=== PATIENT | male | born 1980 | race Caucasian/White ===

== ENCOUNTER 2019-06-20 18:29 | Observation (INO) | payer OTHER, SELFPAY ==
[2019-06-20] VITALS (7 sets, daily range): BP systolic 106–146; BP diastolic 66–97; PULSE 85–140; RESP 18–20; TEMP 36.9–37.1; O2SAT 97–100; BMI 23.6
--- NOTE | ~2019-06-20 | XR_ITS ---
EXAMINATION: XR chest 2V EXAM DATE: 06/20/2019 18:50 INDICATION: Palpitations. TECHNIQUE: Frontal and lateral projections of the chest obtained and reviewed. Comparison is made to prior examination from 10/30/2017. FINDINGS: The lungs are clear. There are no pleural effusions. The cardiomediastinal silhouette i s within normal limits. There is no pneumothorax suspected. The bones and soft tissues are unremark able. IMPRESSION: No acute cardiopulmonary findings. Reviewed, dictated and finalized at location A.
--- NOTE | ~2019-06-20 | CT_ITS ---
EXAMINATION: CTA chest PE protocol EXAM DATE: 06/20/2019 20:09 INDICATION: Right-sided chest pain. Tachycardia. TECHNIQUE: Spiral CTA of the chest (pulmonary arteries) was performed with 100 cc Omnipaque 350 intr avenous contrast injection. Images were acquired during the pulmonary arterial phase. Coronal maxi mum intensity projection 3D-reconstructions were created by the technologist on dedicated workstation . Axial, coronal and sagittal reformatted images were reviewed. The dose-length product (DLP) for t his examination was 251.29 mGy-cm. The exposure was tailored according to patient size (auto mA exp osure control), and iterative reconstruction (ASIR) was used as additional dose reduction technique. There is no prior study for comparison. FINDINGS: Pulmonary arteries are well opacified and without intraluminal filling defects. No thora cic aortic dissection. The lungs are clear. There are no pleural or pericardial effusions. Trach eobronchial tree is patent. There is no mediastinal, hilar or axillary lymphadenopathy. There is no pneumothorax. Heart normal in size. No evidence of coronary arterial calcification. Upper abd omen is unremarkable. There is thoracic spondylosis without osteoblastic or osteolytic lesions iden tified. IMPRESSION: Normal CT pulmonary exam. Reviewed, dictated and finalized at location A. IMPRESSION: Normal CT pulmonary exam.
--- NOTE | 2019-06-20 18:49 | ED.ARRPALP ---
HPI - Arrhythmia/Palpitations General Chief Complaint: Arrhythmia/Palpitations Stated Complaint: heart racing Time Seen by Provider: 06/20/19 18:44 Source: patient Mode of arrival: ambulatory Limitations: no limitations History of Present Illness HPI narrative: A 38 y/o male presents to the ED with c/o heart racing. Pt states that tonight he was sitting on the couch when suddenly his heart started racing. He notes that he checked his FitBit and his heart rate was 129. Pt reports slight nausea, burning midsternal CP, chills, pale skin, flashing vision, and palpitations, but denies diaphoresis, cough, fever, and SOB. He had 1.5 beers tonight. Pt adds that he has had similar episodes previously, and had a halter monitor which did not revel any cardiac abnormalities. He denies any recent car or air travel. Pt smokes an occasional cigar. complaint: heart racing Onset (ago): hour(s) (Tonight) Duration: constant Severity: similar to previous episodes Context: occurred during rest Associated symptoms: chest pain (Midsternal), nausea (Slight) and other (Chills, pale skin, flashing vision, palpitations) Related Data Home Medications Medication Instructions Recorded Confirmed No Home Medications 06/20/19 06/20/19 Allergies Allergy/AdvReac Type Severity Reaction Status Date / Time No Known Allergies Allergy Verified 06/20/19 18:38 Review of Systems Review of Systems: Narrative: CONSTITUTIONAL: Denies fever or sweats. Reports chill. EYES: Denies redness or discharge. Reports flashing vision. ENT: Denies rhinorrhea, congestion, sore throat, or otalgia. CARDIOVASCULAR: Denies edema. Reports midsternal chest pain, palpitations, and heart racing. RESPIRATORY: Denies cough or dyspnea. GASTROINTESTINAL: Denies abdominal pain, vomiting, or diarrhea. Reports slight nausea. GENITOURINARY: Denies dysuria or hematuria. SKIN: Denies rash, diaphoresis, or itching. Reports paleness. MUSCULOSKELETAL: Denies back pain, joint pain, or myalgia. NEUROLOGIC: Denies headache, numbness, or weakness. All systems reviewed & are unremarkable except as noted in HPI and below PMFSH Past Medical History Medical History (Updated 06/20/19 @ 21:07 by Judi Barragan MD) Palpitation Surgical History Surgical History (Updated 06/20/19 @ 19:05 by Adenike Benavides) Surgical history unknown Family History Family History Father Hypertension Social History Social History (Updated 06/20/19 @ 19:08 by Adenike Benavides) Smoking status: Current some day smoker Tobacco type: cigars Gender identity (if verbalized by the patient): Male Exam Narrative: Exam Narrative: GENERAL: Well-appearing, well-nourished, and in no acute distress. HEAD: Normocephalic, atraumatic. EYES: PERRLA and EOMI. ENT: Nares clear, no rhinorrhea or epistaxis. Mucous membranes moist. NECK: Supple. CHEST: Clear to auscultation. No respiratory distress. HEART: Tachycardic and regular rhythm. No murmur heard. Normal peripheral pulses. ABDOMEN: Soft, nontender, nondistended, normal active bowel sounds. EXTREMITIES: Normal range of motion. No edema. SKIN: Warm, dry, no rash. NEURO: No focal deficits. Alert and oriented X3. Course Vital Signs Vital signs: Vital Signs Temperature 36.9 C 06/20/19 18:33 Pulse Rate 140 H 06/20/19 18:33 Respiratory Rate 20 06/20/19 18:33 Blood Pressure 146/89 H 06/20/19 18:33 Pulse Oximetry 100 06/20/19 18:33 Temperature 36.9 C 06/20/19 18:33 Pulse Rate 110 H 06/20/19 21:34 Respiratory Rate 20 06/20/19 21:34 Blood Pressure 124/76 06/20/19 21:34 Pulse Oximetry 97 06/20/19 21:34 MDM - Arrhythmia/Palpitations MDM Narrative Medical decision making narrative: Patient presented for evaluation of chest pain, palpitations. At the time of initial assessment, ABCs are intact, vital signs notable for tachycardia rate in the 140s, that does appear to be sinus rhythm. P
--- NOTE | 2019-06-20 18:59 | ECG_ITS ---
Measurements Intervals [place] Rate: 131 P: 67 OR: 161 QRS: 97 QRSD: 109 T: 59 QT: 317 QTc: 469 Interpretive Statements SINUS TACHYCARDIA RIGHT AXIS DEVIATION INCOMPLETE RIGHT BUNDLE BRANCH BLOCK BORDERLINE ST ABNORMALITY- ANTEROLAT/INF LEADS ABNORMAL ECG Electronically Signed On 06-20-2019 20:44:25 CDT by Jorge Nelson D.O.
[2019-06-20 19:09] LABS: Basophils Absolute Auto 0.1 K/mm3 (0.0-0.1); Basophils Percent Auto 0.9 % (0.2-1.2); Eosinophils Absolute Auto 0.4 K/mm3 (0-0.3); Eosinophils Percent Auto 3.8 % (0-4.4); Hematocrit 43.6 % (42.0-52.0); Hemoglobin 15.1 g/dL (14.0-18.0); Immature Granulocyte Absolute 0.04 K/mm3 (0.00-0.031); Immature Granulocyte Percent A 0.4 % (0-0.5); Lymphocytes Absolute Auto 3.99 K/mm3 (0.9-3.2); Lymphocytes Percent Auto 37.5 % (18.3-44.2); Mean Corpuscular HGB Conc 34.6 g/dl (32-36); Mean Corpuscular Hemoglobin 33.4 pg (26-34); Mean Corpuscular Volume 96.5 fl (80-100); Mean Platelet Volume 10.3 fl (7.4-10.4); Monocytes Absolute Auto 1.1 K/mm3 (0.1-0.6); Neutrophils Absolute Auto 5.1 K/mm3 (1.3-6.7); Neutrophils Percent Auto 47.4 % (45.5-73.1); Platelet Count Result 247 k/mm3 (150-375); Red Blood Count 4.52 M/mm3 (4.6-6.20); Red Cell Distribution Width 11.8 % (11.5-14.5); White Blood Count 10.7 K/mm3 (4.5-10.0)
[2019-06-20 19:18] LABS: INR 0.9; Partial Thromboplastin Time 22.7 SECONDS (22.3-36.8); Prothrombin Time 11.7 Seconds (11.1-14.7)
--- NOTE | 2019-06-20 19:19 | ECG_ITS ---
Measurements Intervals [place] Rate: 101 P: 66 GA: 142 QRS: 100 QRSD: 99 T: 61 QT: 322 QTc: 419 Interpretive Statements SINUS TACHYCARDIA POSSIBLE LEFT ATRIAL ENLARGEMENT RIGHT AXIS DEVIATION INCOMPLETE RIGHT BUNDLE BRANCH BLOCK BORDERLINE ECG Electronically Signed On 06-20-2019 20:49:13 CDT by Jorge Nelson D.O.
[2019-06-20] MEDS: ONDANSETRON INJ 4 MG/2 ML VIAL IV PUSH (19:21)
[2019-06-20] MEDS: ASPIRIN 81 MG CHEWABLE TABLET 324 MG PO (19:21)
[2019-06-20] MEDS: SODIUM CHLORIDE 0.9% IV 1,000 ML 999 ML IV CONT (19:21)
[2019-06-20 20:00] LABS: Blood Urea Nitrogen 19 mg/dL (9-20); Carbon Dioxide 23 mmol/L (22-30); Chloride 105 mmol/L (98-107); Estimated CRCL calculation 93 ml/min; Estimated Glomerular Filt Rate > 60; Glucose 155 mg/dL (75-110); Potassium 3.4 mmol/L (3.4-5.0); Sodium 135 mmol/L (137-145)
[2019-06-20 20:11] LABS: Troponin I < 0.012 ng/mL (0.000-0.034)
--- NOTE | 2019-06-20 21:28 | PM.IMHP ---
H&P: [facility] History of Present Illness Chief complaint: Chest pain, fast heart rate Narrative: Date and time of patient contact: 06/21/2019 at 2:00 a.m. Nadir Saeed is a 38 year old male previously healthy who presented to the ER via private vehicle with sudden onset of heart racing and palpitations. The patient was sitting with his girlfriend watching TV when he noticed that his heart rate jumped up on his activity tracker. This was followed by sensation of narrowing of his visual field, cool sensation to his forehead, cool and tingling fingers, and burning sensation in his chest. The symptoms lasted about 45 minutes before resolving. The patient reported that when he went to get into the car he was having severe muscle twitching/in his arms back and chest similar to shivering. They resolved once he came to the ER. He had prior episodes of occasional skipping of heartbeat. He has had episodes as well of his heart racing but it usually lasts for a couple of minutes and is not usually accompanied by he the burning sensation in his chest. He only drinks 1 caffeinated beverage a day. He does not use any illicit substances or energy supplements. He denied feeling particularly anxious before onset of his symptoms today. But he has noticed that some of his episodes of tachycardia been in stressful or frustrating situations. He has not seen a primary care doctor and many years. He had previously had a Holter monitor that did not demonstrated any cardiac arrhythmias. He stated that he waited to come into the ER because he did not want to come in if he was just an anxiety attack. When the patient initially arrived in the ER his calcium was slightly low at 8.0 but repeat CMP demonstrated a normal calcium. He has gained about 15 lb since he turned 38. He has not noticed any skin/hair changes, or changes in bowel habits. Review of Systems Review of Systems: Narrative: Except as documented in the HPI, all other systems were reviewed and are negative. [facility] Past Medical History Medical History (Updated 06/21/19 @ 02:54 by Marilia Zepeda DO) Anxiety Palpitation Surgical History Surgical History (Updated 06/21/19 @ 02:49 by Marilia Zepeda DO) No history of previous surgery Family History Family History (Updated 06/21/19 @ 02:49 by Marilia Zepeda DO) Father Hypertension Mother , of metastatic breast cancer in her early 60s Hypertension Breast cancer Grandparent Heart disease Social History Social History (Updated 06/21/19 @ 03:10 by Marilia Zepeda DO) Social History: Primary care physician: None Smoking status: Current some day smoker Tobacco type: cigars Additional smoking assessment comments: 1 CIGAR WEEKLY Drinks per week: 7 Alcohol use details: He drinks 1-2 beers a day during the week and may drink 3 or 4 beers a day on the weekend. Substance use: current Substance use type: marijuana Other substance usage details: He has used marijuana 4 times during his lifetime. Additional living arrangements comments: . 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 Gender identity (if verbalized by the patient): Male Spiritual care concerns: No Agree to blood products: Yes Meds Home Medications and Allergies Home Medications Medication Instructions Recorded Confirmed Type No Home Medications 06/20/19 06/20/19 History Allergies Allergy/AdvReac Type Severity Reaction Status Date / Time No Known Allergies Allergy Verified 06/20/19 18:38 Vital Signs Vital Signs - 24 hr 06/20/19 18:33 06/20/19 18:37 06/20/19 20:20 Temperature 98.4 F Pulse Rate 140 H 131 H 101 H Respiratory Rate 20 18 Blood Pressure 146/89 H 127/77 Pulse Oximetry 100 97 Exam Narrative: Exam Narrative: PHYSICAL EXAM: WEIGHT 70.5 kilos BMI 23.6 General: No acute distress, well-developed well-nourishe
[2019-06-20 22:10] LABS: Alanine Aminotransferase 10 U/L (4-50); Alkaline Phosphatase 54 U/L (38-126); Aspartate Amino Transferase 23 U/L (17-59); Bilirubin,Total 0.3 mg/dL (0.2-1.3); Blood Urea Nitrogen 18 mg/dL (9-20); Calcium 8.8 mg/dL (8.4-10.2); Carbon Dioxide 27 mmol/L (22-30); Chloride 104 mmol/L (98-107); Estimated CRCL calculation 93 ml/min; Estimated Glomerular Filt Rate > 60; Glucose 103 mg/dL (75-110); Potassium 4.2 mmol/L (3.4-5.0); Sodium 138 mmol/L (137-145)
--- NOTE | 2019-06-20 22:31 | ADMGEN ---
This patient, Nadir Saeed, was admitted to IMU Room 204-01 FROM ER 06/20/192224. Patient/family oriented to hospital policies and general routines including ID bracelet, bed and alarms, visiting hours, pain management, procedures, bathroom and other care routines, personal items, smoking policy, room service/diet, and visiting hours. Valuables list has been completed. Information on how to activate the Rapid Response Team has been discussed. Patient/Family are encouraged to report perceived risks to care and to ask questions if they do not understand what they are told or what they should do.
[2019-06-20 23:16] LABS: Troponin I < 0.012 ng/mL (0.000-0.034)
[2019-06-21] VITALS (12 sets, daily range): BP systolic 105–120; BP diastolic 67–69; PULSE 64–78; RESP 16–20; TEMP 36.2–36.4; O2SAT 97–100
--- NOTE | 2019-06-21 | ECHO_ITS ---
Patient Info Name: Nadir Saeed Age: 38 years : 1980 Gender: Male Ht: 68 in Wt: 151 lbs BSA: 1.82 m2 HR: 65 bpm BP: 105 / 67 mmHg Heart Rhythm: Sinus Rhythm Technical Quality: Good Exam Date: 06/21/2019 7:51 AM Exam Location: [facility] Patient Status: Inpatient Admit Date: 06/20/2019 Staff Ordering Physician: Judi Barragan MD Spline Rolling Machine Job Setter: Daquan Clark RDCS, RT Attending Provider: Marilia Zepeda DO Referring Physician: Yung SILVA; Exam Type: CA echo doppler color flow Study Info Indications R07.9 - Chest pain, unspecified I45.19 - Other right bundle-branch block Complete two-dimensional, color flow and Doppler transthoracic echocardiogram is performed. Summary 1. Unremarkable echocardiogram. Left Ventricle Left ventricular chamber dimension is normal. Left ventricular systolic function is normal, estimated at 55-60%. The left ventricular diastolic function is normal. Right Ventricle Right ventricular chamber dimension is normal. Left Atria Left atrial chamber dimension is normal. Right Atria Right atrial chamber dimension is normal. Aortic Valve The aortic valve is trileaflet. Pulmonic Valve The pulmonic valve is not well visualized. Mitral Valve The mitral valve has normal leaflets. Tricuspid Valve The tricuspid valve leaflets are normal. Pericardium/Pleural The pericardium appears normal. Aorta The aortic root size at the sinus of Valsalva is normal. Left Ventricular Outflow Tract Name Value Normal LVOT 2D LVOT Diameter 2.0 cm LVOT Doppler LVOT Peak Gradient 2 mmHg LVOT Mean Gradient 1 mmHg LVOT VTI 15 cm LVOT VTI/AV VTI Ratio 0.8 LVOT Stroke Volume 48 ml LVOT CO 3.4 l/min LVOT CI 1.9 l/min/m2 Pulmonic Valve Name Value Normal PV Doppler PV Peak Gradient 3 mmHg Mitral Valve Name Value Normal MV Doppler MV Decel [place] 196 cm/s2 MV PHT 91 ms MV Area (PHT) 2.4 cm2 4.0-5.0 MV Diastolic Function MV E Peak Velocity 61 cm/s MV A Peak Velocity 44 cm/s MV E/A 1.4 MV Decel Time 314 ms Tricuspid Valve
[2019-06-21 02:35] LABS: Alanine Aminotransferase 9 U/L (4-50); Albumin Level 3.9 g/dL (3.5-5.1); Alkaline Phosphatase 50 U/L (38-126); Aspartate Amino Transferase 20 U/L (17-59); Bilirubin,Total 0.4 mg/dL (0.2-1.3); Blood Urea Nitrogen 17 mg/dL (9-20); Calcium 8.9 mg/dL (8.4-10.2); Carbon Dioxide 26 mmol/L (22-30); Chloride 106 mmol/L (98-107); Estimated CRCL calculation 93 ml/min; Estimated Glomerular Filt Rate > 60; Glucose 94 mg/dL (75-110); Potassium 3.6 mmol/L (3.4-5.0); Sodium 137 mmol/L (137-145)
[2019-06-21 02:47] LABS: Troponin I < 0.012 ng/mL (0.000-0.034)
[2019-06-21] MEDS: ASPIRIN 81 MG CHEWABLE TABLET PO (08:28)
--- NOTE | 2019-06-21 12:28 | PM.DS ---
DS: Diagnosis Admitting Diagnosis Admitting Diagnosis: Other chest pain DS: Summary Hospital Course Reason for hospitalization: Palpitations and chest discomfort Hospital Course: 38-year-old gentleman was hospitalized overnight due to experiencing a warm squeezing sensation associated with palpitations and mild nausea. The squeezing sensation was mild and substernal. It did not radiate. He had no shortness of breath or diaphoresis syncope or presyncope. He was noted to look very pale before coming emergency department. The entire spell lasted several minutes. He had no residual effects from it. He had a quiet night. Tolerated his food. He has not been ill recently infected been doing quite well. He takes no home medications and would like to continue that way. His chest x-ray, CTA chest, EKG, and serial troponins were all unremarkable. Echocardiogram showed normal left ventricular ejection fraction with no wall motion abnormalities and no significant valvular dysfunction. Status at Discharge Functional status at discharge: independent ambulation Overall status at discharge: patient is back to baseline Time Spent with Patient Time attestation: Total time spent providing and/or coordinating discharge services:32 min Exam Narrative: Exam Narrative: HEENT: EOMI, PERRL, pharyngeal mucosa pink and intact NECK: No JVD, CHEST: Clear to auscultation. Normal effort. HEART: NL S1/S2, regular, no murmur ABDOMEN: BS+, soft EXTREMITIES: No cyanosis, edema, or clubbing NEUROLOGIC: CN intact and symmetric to inspection. MUSCULOSKELETAL: Tone and strength symmetric. No tremors PSYCH: Alert. Oriented to person, place, and time. DS: Data Data Completed and Pending Labs on day of discharge: Labs from last 24 hours 06/21/19 06/21/19 06/20/19 01:49 01:49 22:44 WBC RBC Hgb Hct MCV MCH MCHC RDW Plt Count MPV Immature Gran % (Auto) Neut % (Auto) Lymph % (Auto) [place] % (Auto) Eos % (Auto) Baso % (Auto) Lymph # (Auto) [place] # (Auto) Eos # (Auto) Baso # (Auto) Abs Immat Gran (auto) Absolute Neuts (auto) Absolute Nucleated RBC Nucleated RBC % PT INR APTT Sodium 137 Potassium 3.6 Chloride 106 Carbon Dioxide 26 BUN 17 Creatinine 0.90 Estim Creat Clear Calc 93 Estimated GFR > 60 Glucose 94 Calcium 8.9 Total Bilirubin 0.4 AST 20 ALT 9 Alkaline Phosphatase 50 Troponin I < 0.012 < 0.012 Total Protein 7.0 Albumin 3.9 TSH 06/20/19 06/20/19 06/20/19 21:55 19:42 19:02 WBC RBC Hgb Hct MCV MCH MCHC RDW Plt Count MPV Immature Gran % (Auto) Neut % (Auto) Lymph % (Auto) [place] % (Auto) Eos % (Auto) Baso % (Auto) Lymph # (Auto) [place] # (Auto) Eos # (Auto) Baso # (Auto) Abs Immat Gran (auto) Absolute Neuts (auto) Absolute Nucleated RBC Nucleated RBC % PT 11.7 INR 0.9 APTT 22.7 Sodium 138 135 L Potassium 4.2 3.4 Chloride 104 105 Carbon Dioxide 27 23 BUN 18 19 Creatinine 0.90 0.90 Estim Creat Clear Calc 93 93 Estimated GFR > 60 > 60 Glucose 103 155 H Calcium 8.8 8.0 L Total Bilirubin 0.3 AST 23 ALT 10 Alkaline Phosphatase 54 Troponin I < 0.012 Total Protein 7.0 Albumin 4.0 TSH 3.710 06/20/19 19:02 WBC 10.7 H RBC 4.52 L Hgb 15.1 Hct 43.6 MCV 96.5 MCH 33.4 MCHC 34.6 RDW 11.8 Plt Count 247 MPV 10.3 Immature Gran % (Auto) 0.4 Neut % (Auto) 47.4 Lymph % (Auto) 37.5 [place] % (Auto) 10.0 H Eos % (Auto) 3.8 Baso % (Auto) 0.9 Lymph # (Auto) 3.99 H [place] # (Auto) 1.1 H Eos # (Auto) 0.4 H Baso # (Auto) 0.1 Abs Immat Gran (auto) 0.04 H Absolute Neuts (auto) 5.1 Absolute Nucleated RBC 0.0 Nucleated RBC % 0.0 PT INR APTT Sodium Potassium Chloride Carbon Dioxide BUN Creatinine Estim Creat Clear Calc
== END 2019-06-21 14:40 | disposition home or self-care (01) ==
LOC: ANHED 21:10 → ANHIMU 23:12
PROVIDERS: Admitting Provider Internal Medicine; Emergency Provider Emergency Medicine; Visit Provider Internal Medicine
DX: R07.89 Other chest pain (principal); R00.2 Palpitations; E83.51 Hypocalcemia; R94.31 Abnormal electrocardiogram [ECG] [EKG]; F17.290 Nicotine dependence, other tobacco product, uncomplicated; Z82.49 Family history of ischemic heart disease and other diseases of the circulatory system
CPT/HCPCS: 36415; 71046; 71275; 80048; 80053; 84443; 84484; 85025; 85610; 85730; 93005; 93306; 96374; 99285; A9270; G0378; J2405; J7030; Q9967

== ENCOUNTER 2021-10-03 16:42 | Outpatient (CLI) | payer BC, SELFPAY ==
--- NOTE | ~2021-10-03 | XR_ITS ---
EXAMINATION: XR chest 2V Exam Date/Time: 10/03/2021 17:45 CDT HISTORY: Dyspnea/ SOB x 1yr, hx COVID Comparison: 06/20/2019. RESULT: Lines, tubes, and devices: None. Lungs and pleura: Clear. Cardiomediastinal silhouette: Stable cardiomediastinal silhouette. Other: No acute osseous or upper abdominal finding. IMPRESSION: No acute cardiopulmonary process. Reviewed, dictated and finalized at location K.
== END 2021-10-03 16:43 | disposition home or self-care (01) ==
LOC: CHSIMG 16:50
PROVIDERS: PCP Family Medicine; Visit Provider Family Medicine
DX: R06.00 Dyspnea, unspecified (principal)
CPT/HCPCS: 71046

== ENCOUNTER 2021-10-19 09:23 | Outpatient (CLI) | payer BC, SELFPAY | END 2021-10-19 09:24 | disposition home or self-care (01) | LOC: CHSLAB 09:25 | PROVIDERS: PCP Family Medicine; Visit Provider Family Medicine | DX: R06.00 Dyspnea, unspecified (principal) | CPT/HCPCS: 94060; 94726; 94729 ==

== ENCOUNTER 2021-12-05 15:49 | Outpatient (CLI) | payer BC, SELFPAY ==
--- NOTE | ~2021-12-05 | XR_ITS ---
EXAM: XR elbow RT min 3V DATE: 12/05/2021 16:00 HISTORY: elbow pain after lifting injury x 6 mo . COMPARISON: None available. FINDINGS: Normal mineralization. No fracture or dislocation. No lytic or blastic lesion. Joint space s are maintained. No erosion or periosteal change. Soft tissues within normal limits. IMPRESSION: Normal right elbow radiograph findings. Reviewed, dictated and finalized at location K.
== END 2021-12-05 15:50 | disposition home or self-care (01) ==
LOC: CHSIMG 15:51
PROVIDERS: PCP Family Medicine; Visit Provider Family Medicine
DX: M25.521 Pain in right elbow (principal)
CPT/HCPCS: 73080

== ENCOUNTER 2023-10-06 08:17 | Outpatient (CLI) | payer BC, SELFPAY ==
--- NOTE | ~2023-10-06 | US_ITS ---
Abdominal Sonogram: Real-time sonographic imaging of the abdomen was performed. Clinical History: Abdominal pain Findings: The liver appears normal with no evidence of mass lesion or bile duct dilatation. Main por yahir vein demonstrates normal direction of flow. The spleen is normal in size without evidence of foca l lesion. The gallbladder is well distended, and appears normal with no evidence of gallstone or wal l thickening. The common bile duct measures 2 mm. The visualized pancreas, aorta, and IVC are unrema rkable. The right kidney measures 11.0 cm in length and the left kidney measures 10.9 cm. There is no hydronephrosis or renal calculus. Impression: Unremarkable abdominal ultrasound. Reviewed, dictated and finalized at location . Impression: Unremarkable abdominal ultrasound.
== END 2023-10-06 08:18 | disposition home or self-care (01) ==
LOC: CHSIMG 08:20
PROVIDERS: PCP Family Medicine; Visit Provider Family Medicine
DX: R10.11 Right upper quadrant pain (principal)
CPT/HCPCS: 76700

== ENCOUNTER 2024-06-24 13:54 | Outpatient (CLI) | payer BC, SELFPAY ==
--- NOTE | ~2024-06-24 | XR_ITS ---
XR hip LT min 2V Ordering provider: Dejon Valenzuela MD History: . pain in lat left hip x years, no injury . Comparison: None. FINDINGS: BONES: No acute fracture or dislocation. Slightly sclerotic area in the left intertrochanteric area m ay be bone infarct or cartilaginous lesion. Follow-up advised. HIP JOINT SPACES: Normal. PUBIC SYMPHYSIS: Normal. SOFT TISSUES: Normal. IMPRESSION: No acute osseous abnormality pelvis and left hip. Slightly sclerotic area in the left intertrochanteric area follow-up advised. Reviewed, dictated and finalized at location A.
--- OUTSIDE RECORDS SUMMARY | 2024-06-24 15:47 | XMS_ITS | Clinical Summary ---
Author Organization [facility] Address [address] [place] [address] Care Team Providers Care Rn Interventional Name Role Phone Unavailable Primary Care Provider Unavailabl e Social History Tobacco Use Types Packs/Day Years Used Date Smoking Tobacco: Never Assessed Sex and Gender Information Value Date Recorded Sex Assigned at Not on file Legal Sex Male 10:29 AM CDT Gender Identity Not on file Sexual Orientation Not on file Plan of Treatment Health Maintenance Due Date Last Done Comments Colorectal Cancer Screening Colonoscopy (10 Years) 1978 Annual Physical 1981 Hepatitis C 1996 DTaP, Tdap and Td Vaccines ( 1 - Tdap) 1997 Hepatitis B Vaccines (1 of 3 - 19+ 3-dose series) 1997 COVID-19 Vaccine (2023-2 5 season) 2023 Influenza Adult (#1) 2024 HPV Vaccines Aged Out No longer eligi ble based on patient's age to complete this topic Meningococcal B Vaccine Aged Out No l onger eligible based on patient's age to complete this topic Meningococcal Vaccine Aged Out No sarmad stewart eligible based on patient's age to complete this topic Pneumococcal Vaccine: Pediat rics (0 to 5 Years) and At-Risk Patients (6 to 64 Years) Aged Out No longer eligible b ased on patient's age to complete this topic RSV Immunizations Under 20 Months Aged Out No longer eligible based on patient's age to complete this topic Insurance [employer]
== END 2024-06-24 13:55 | disposition home or self-care (01) ==
LOC: CHSIMG 13:55
PROVIDERS: PCP Family Medicine; Visit Provider Family Medicine
DX: M25.552 Pain in left hip (principal)
CPT/HCPCS: 73502